=== PATIENT | female | born 1995 | race American Indian/Alaskan Native ===

== ENCOUNTER 2021-01-05 09:49 | Emergency (ER) | payer OTHER ==
--- NOTE | 2021-01-05 10:19 | Emergency Department Report ---
HPI - General Chief Complaint: Seizure Time Seen by Provider: 01/05/21 10:05 - HPI HPI: 25-year-old -Serbian female presents to the emergency department via EMS from [facility] with a complaint of some seizure-like activity. At the time of my examination the patient is awake, alert, oriented, and has no physical complaints. Patient says that she has a history of a seizure disorder but cannot tell me what medication that she takes for it. The paperwork from [facility] states that the patient has a history of pseudoseiz ures. When asked what makes the patient an involuntary admission at [facility], the patient says that she is therefore "anxiety." It does not appear that the patient was given any medication for the seizure-like activity prior to presentation today. Her medication list from [facility] does show Depakote, but I do not know if she is taking this for seizures or behavioral health. ED Review of Systems ROS: Stated complaint: SEIZURE Other details as noted in HPI Comment: All other systems reviewed and negative Constitutional: denies: chills, fever Eyes: denies: eye pain, vision change ENT: denies: ear pain, throat pain Respiratory: denies: cough, shortness of breath Cardiovascular: denies: chest pain, palpitations Gastrointestinal: denies: abdominal pain, vomiting Genitourinary: denies: dysuria, discharge Musculoskeletal: denies: back pain, arthralgia Skin: denies: rash, lesions Neurological: other (Seizure). denies: headache Physical Exam - Physical Exam Physical Exam: GENERAL: The patient is well-developed well-nourished. HENT: Normocephalic. Atraumatic. Patient has moist mucous membranes. EYES: Extraocular motions are intact. NECK: Supple. Trachea is midline. CHEST/LUNGS: Clear to auscultation. There is no respiratory distress noted. HEART/CARDIOVASCULAR: Regular. There is no tachycardia. There is no murmur. ABDOMEN: Abdomen is soft, nontender. Patient has normal bowel sounds. SKIN: Skin is warm and dry. NEURO: The patient is awake, alert, and cooperative. The patient has no focal neurologic deficits. Normal speech. Cranial nerves II through XII grossly intact. No facial asymmetry. No pronator drift or dysmetria. MUSCULOSKELETAL: There is no tenderness or deformity. There is no limitation range of motion. ED Medical Decision Making - Lab Data Result diagrams: 01/05/21 10:19 01/05/21 10:19 Lab Results 01/05/21 01/05/21 01/05/21 Range/Units 10:19 10:19 10:19 WBC 6.9 (4.5-11.0) K/mm3 RBC 4.31 (3.65-5.03) M/mm3 Hgb 13.2 (10.1-14.3) gm/dl Hct 39.9 (30.3-42.9) % MCV 93 (79-97) fl MCH 31 (28-32) pg MCHC 33 (30-34) % RDW 13.6 (13.2-15.2) % Plt Count 211 (140-440) K/mm3 Lymph % (Auto) 22.9 (13.4-35.0) % Jennings % (Auto) 6.2 (0.0-7.3) % Eos % (Auto) 0.3 (0.0-4.3) % Baso % (Auto) 0.4 (0.0-1.8) % Lymph # (Auto) 1.6 (1.2-5.4) K/mm3 Jennings # (Auto) 0.4 (0.0-0.8) K/mm3 Eos # (Auto) 0.0 (0.0-0.4) K/mm3 Baso # (Auto) 0.0 (0.0-0.1) K/mm3 Seg Neutrophils % 70.2 H (40.0-70.0) % Seg Neutrophils # 4.8 (1.8-7.7) K/mm3 Sodium 133 L (137-145) mmol/L Potassium 3.9 (3.6-5.0) mmol/L Chloride 95.0 L (98-107) mmol/L Carbon Dioxide 18 L (22-30) mmol/L Anion Gap 24 mmol/L BUN 18 H (7-17) mg/dL Creatinine 1.0 (0.6-1.2) mg/dL Estimated GFR > 60 ml/min BUN/Creatinine Ratio 18 % Glucose 71 (65-100) mg/dL Calcium 9.8 (8.4-10.2) mg/dL Valproic Acid 37.0 L (50-100) ug/mL - Medical Decision Making This patient presents to the emergency department from her psychiatric facility after she had some witnessed seizure-like activity. The patient states that she has a seizure disorder, but her paperwork also shows that she has been diagnosed previously with pseudoseizures. I do not see any medications on her list consistent with antiepileptic medication. The Depakote is specifically listed as being for mood disorder. The patient does appear slightly fatigued, but otherwise is easily arousable, alert, oriented. She does not appear in any acute distress and has no physical complaints. There are no focal, motor or sensory deficits and her cranial nerves are intact. The patient's labs have been unremarkable including CBC and metabolic panel. The Depakote level would be subtherapeutic if it was for seizures, but once again it appears to be for psychiatric treatment. Vital signs reassuring throughout her ED course including being afebrile. The patient was reevaluated over more than 3 hours without any return of any seizure-like activity. For all these reasons she appears safe for discharge back to the psychiatric facility. She has been instructed to follow-up with primary care and neurology upon discharge from [facility]. She will return to the emergency department with any worsening of her symptoms or with any acute distress. Critical Care Time: No Critical care attestation.: If time is entered above; I have spent that time in minutes in the direct care of this critically ill patient, excluding procedure time. ED Disposition Clinical Impression: Seizure-like activity Disposition: [address] [place] [address] Is pt being admited?: No Condition: Stable Instructions: Seizure, Adult Additional Instructions: Please follow-up with your primary care physician as soon as you are done at [facility]. I am also giving you a referral for a local neurologist, Dr. Farrell, to follow-up regarding this seizure-like activity. Because of the seizures, you are not allowed to drive a car or operate any heavy machinery for at least 6 months or until cleared by a neurologist. Please avoid any alcohol or illicit drug use. Please avoid any excessive caffeine. Try to get 8 hours of uninterrupted sleep at night. Return to the emergency department with any worsening of your symptoms, new or concerning symptoms not addressed during this current emergency department visit, or with any acute distress. Referrals: MAURI FLORES MD [Primary Care Provider] - 3-5 Days LAWRENCE FARRELL MD [Referring] - 3-5 Days Time of Disposition: 12:03
[2021-01-05 11:19] LABS: Basophils % (Auto) 0.4 % (0.0-1.8); Eosinophils % (Auto) 0.3 % (0.0-4.3); Hematocrit 39.9 % (30.3-42.9); Hemoglobin 13.2 gm/dl (10.1-14.3); Lymphocytes # (Auto) 1.6 K/mm3 (1.2-5.4); Lymphocytes % (Auto) 22.9 % (13.4-35.0); Mean Corpuscular HGB Conc 33 % (30-34); Mean Corpuscular Volume 93 fl (79-97); Monocytes # (Auto) 0.4 K/mm3 (0.0-0.8); Monocytes % (Auto) 6.2 % (0.0-7.3); Red Blood Count 4.31 M/mm3 (3.65-5.03); Red Cell Distribution Width 13.6 % (13.2-15.2)
[2021-01-05 11:20] LABS: Platelet Count 211 K/mm3 (140-440)
[2021-01-05 11:46] LABS: BUN/Creatinine Ratio 18; Blood Urea Nitrogen 18 mg/dL (7-17); Calcium 9.8 mg/dL (8.4-10.2); Hemolysis Index 57
[2021-01-05 15:46] VITALS: BP 99/49
== END 2021-01-05 17:46 ==
LOC: ED 09:49
DX: R56.9 Unspecified convulsions (principal)
CPT/HCPCS: 36415; 80048; 80164; 85025; 99283

== ENCOUNTER 2021-05-11 10:50 | Emergency (ER) | payer OTHER ==
--- NOTE | 2021-05-11 11:30 | Emergency Department Report ---
HPI - General Chief Complaint: Psych Time Seen by Provider: 05/11/21 11:04 - HPI HPI: 25-year-old female with history of schizoaffective disorder and psychogenic nonepileptic seizures presents via EMS from [facility] facility due to seizure-like convulsions today. According to the EMS report, when they arrived the patient was having whole body convulsions and foaming at the mouth. She was given 1 mg of Ativan IM by the facility and another milligram of IM Ativan by EMS. Her seizure-like activity continued but was interrupted by episodes of the patient being awake, alert, and oriented with no confusion or postictal signs. Her fingerstick blood glucose was 78. Upon arrival to our emergency department, the patient allegedly tried to run away from EMS and had to be redirected into her ED bed. When I spoke to the patient, she was calm, alert, and oriented x4. She states that she has some diffuse abdominal pain which is typical of her seizures but denies any other physical symptoms or complaints. She denies SI/HI or auditory/visual hallucinations. She is currently experiencing her menstrual period. ED Past Medical Hx - Past Medical History Previous Medical History?: Yes Hx Psychiatric Treatment: Yes (Schizoaffective disorder, Psychogenic Nonepileptic Seizures) - Social History Smoking Status: Never Smoker ED Review of Systems ROS: Stated complaint: SZ/MH Other details as noted in HPI Comment: All other systems reviewed and negative Constitutional: denies: chills, fever Eyes: denies: eye pain, vision change ENT: denies: throat pain, congestion Respiratory: denies: cough, shortness of breath Cardiovascular: denies: chest pain, palpitations Gastrointestinal: abdominal pain. denies: nausea, vomiting, diarrhea Genitourinary: denies: dysuria, frequency Musculoskeletal: denies: back pain, arthralgia Skin: denies: rash, lesions Neurological: denies: headache, weakness, numbness, paresthesias Psychiatric: anxiety. denies: auditory hallucinations, visual hallucinations, homicidal thoughts, suicidal thoughts Physical Exam - Physical Exam Vital Signs: Vital Signs 05/11/21 05/11/21 05/11/21 10:56 11:01 11:02 Temperature 98.3 F Pulse Rate 101 H 95 H Respiratory 19 21 Rate Blood Pressure 115/72 O2 Sat by Pulse 99 Oximetry 05/11/21 11:15 Temperature Pulse Rate 90 Respiratory 11 L Rate Blood Pressure 114/68 O2 Sat by Pulse 100 Oximetry Physical Exam: GENERAL: Well developed and well nourished. No acute distress HEAD: Normocephalic. No obvious signs of trauma. ENT: Moist mucous membranes. EYES: Extraocular movements are intact. Pupils are equal round and reactive to light bilaterally NECK: Supple. Full ROM is intact. Trachea is midline. LUNGS: Nonlabored breathing. Equal chest rise bilaterally. Clear to auscultation bilaterally. CARDIOVASCULAR: Regular rate and rhythm. No murmurs or rubs. VASCULAR: Cap refill < 2 seconds ABDOMEN: Abdomen is soft and nondistended. There is no significant tenderness, guarding or rebound. SKIN: Skin is warm and dry NEURO: Patient is awake, alert, and oriented. resident care manager II-XII grossly intact. No focal deficits. Normal motor and sensory exam throughout. Normal speech. MUSCULOSKELETAL: No obvious deformities. No significant tenderness. Normal ROM throughout. BACK/SPINE: No costovertebral angle tenderness. ED Course Vital Signs 05/11/21 05/11/21 05/11/21 10:56 11:01 11:02 Temperature 98.3 F Pulse Rate 101 H 95 H Respiratory 19 21 Rate Blood Pressure 115/72 O2 Sat by Pulse 99 Oximetry 05/11/21 11:15 Temperature Pulse Rate 90 Respiratory 11 L Rate Blood Pressure 114/68 O2 Sat by Pulse 100 Oximetry ED Medical Decision Making - Lab Data Result diagrams: 05/11/21 18:01 05/11/21 18:01 - Medical Decision Making 25-year-old female with history of schizoaffective disorder and anxiety with pseudoseizures presents from [facility] for pseudoseizures. Patient arrived with notes from the facility which described prior episodes which are almost identical to her current presentation. Despite seizure-like activity she has had intermittent episodes where she is fully awake and oriented x4 with no postictal state. She reports abdominal pain which is typical of her seizures. She is alert and oriented and has a nonfocal neurologic exam. There is no significant abdominal tenderness, guarding, or rebound. She has no CVA tenderness. Given that the patient came from a psychiatric facility in the she tried to run away upon arrival to our emergency department, feel that she is a threat to her own safety and I have signed a 1013 order due to acute psychosis/psychogenic nonepileptic seizures. We will send a full set of medical clearance labs and observe the patient, with the goal to send the [facility]. The patient tried to run away and escape multiple times during her visit and had multiple subsequent pseudoseizures. She was given multiple doses of Haldol and Geodon and brought back to her room. Labs reveal no significant leukocytosis or anemia. Kidney function is normal and there are no significant electrolyte abnormalities although there is hypokalemia with potassium 3.3 which we will replete. She is medically cleared for discharge back to her psychiatric facility. Critical care attestation.: If time is entered above; I have spent that time in minutes in the direct care of this critically ill patient, excluding procedure time. ED Disposition Clinical Impression: Pseudoseizures, Psychosis, Hypokalemia Disposition: [address] [place] [address] Is pt being admited?: No Condition: Stable Referrals: PRIMARY CARE, [Primary Care Provider] - 3-5 Days
[2021-05-11] MEDS ORDERED: ZIPRASIDONE MESYLATE 20 MG VIAL IM ONE ×2 (11:35→11:36)
[2021-05-11] MEDS ORDERED: diphenhydrAMINE 50 MG/ML VIAL ONE ×2 (12:01→17:34)
[2021-05-11] MEDS ORDERED: HALOPERIDOL LACTATE 5 MG/1 ML INJ ONE ×2 (12:01→17:28)
[2021-05-11] MEDS ORDERED: HALOPERIDOL LACTATE 5 MG/1 ML INJ IM ONE ×2 (12:05→17:28)
[2021-05-11] MEDS ORDERED: diphenhydrAMINE 50 MG/ML VIAL IM ONE ×2 (12:06→17:38)
[2021-05-11 18:25] LABS: Basophils % (Auto) 0.4 % (0.0-1.8); Hematocrit 34.2 % (30.3-42.9); Hemoglobin 11.7 gm/dl (10.1-14.3); Lymphocytes # (Auto) 0.9 K/mm3 (1.2-5.4); Lymphocytes % (Auto) 9.9 % (13.4-35.0); Mean Corpuscular HGB Conc 34 % (30-34); Mean Corpuscular Volume 89 fl (79-97); Monocytes # (Auto) 0.4 K/mm3 (0.0-0.8); Monocytes % (Auto) 4.8 % (0.0-7.3); Platelet Count 253 K/mm3 (140-440); Red Blood Count 3.85 M/mm3 (3.65-5.03); Red Cell Distribution Width 13.4 % (13.2-15.2)
[2021-05-11 19:43] LABS: BUN/Creatinine Ratio 17; Blood Urea Nitrogen 17 mg/dL (7-17); Calcium 9.2 mg/dL (8.4-10.2); Hemolysis Index 4
[2021-05-11] MEDS ORDERED: POTASSIUM CHLORIDE ER 20 MEQ TAB PO ONE (19:56)
[2021-05-12 09:31] VITALS: BP 136/89
== END 2021-05-12 09:30 ==
LOC: ED 10:50
DX: F29 Unspecified psychosis not due to a substance or known physiological condition (principal); R56.9 Unspecified convulsions; E87.6 Hypokalemia; F25.9 Schizoaffective disorder, unspecified
CPT/HCPCS: 36415; 80048; 84703; 85025; 96372; 99285; J1200; J1630; J3486; 80320; G0480